=== PATIENT | female | born 1945 | race Two or more races ===

== ENCOUNTER 2016-04-12 09:26 | Emergency (ER) | payer MEDICARE, OTHER ==
[~2016-04-12] VITALS: Ht 157.5 cm; Wt 70.3 kg
[2016-04-12 10:28] VITALS: BP 138/74
--- NOTE | 2016-04-12 10:43 | PHYS DOC ---
Past Medical History Past Medical History: No Pertinent History Past Surgical History: Cholecystectomy, Hysterectomy, Tonsillectomy Alcohol Use: None Drug Use: None Adult General Chief Complaint Chief Complaint: HAND PROBLEM HPI HPI Patient is a 71 year old female presents emergency department stating that she fell on the ice on Tuesday. She states that she fell on an outstretched hand. She states that she has been having pain in the wrist area with swelling. She's been placing cream over the area as well as ice packs and elevation. She's been taking extra strength Tylenol for the pain and discomfort which she states is helped. Patient continues to deny any numbness or tingling into the fingers. Patient did have a ring on her finger in which she had it removed after x-rays were taken. Review of Systems Review of Systems Constitutional: Denies fever or chills [] Eyes: Denies change in visual acuity, redness, or eye pain [] HENT: Denies nasal congestion or sore throat [] Respiratory: Denies cough or shortness of breath [] Cardiovascular: No additional information not addressed in HPI [] Musculoskeletal: Denies back pain. C/o right wrist pain and discomfort Integument: Denies rash or skin lesions [] Neurologic: Denies headache, focal weakness or sensory changes [] Allergies Allergies Allergies Coded Allergies Type Severity Reaction Last Updated Verified No Known Drug Allergies 04/12/16 No Physical Exam Physical Exam Constitutional: Well developed, well nourished, no acute distress, non-toxic appearance. [] HENT: Normocephalic, atraumatic, bilateral external ears normal, oropharynx moist, no oral exudates, nose normal. [] Eyes: PERRLA, EOMI, conjunctiva normal, no discharge. [] Neck: Normal range of motion, no tenderness, supple, no stridor. [] Cardiovascular:Heart rate regular rhythm Lungs & Thorax: no respiratory distress Skin: Warm, dry, no erythema, no rash. [] Back: No tenderness Extremities: Right wrist tenderness, no cyanosis, no clubbing, ROM intact, no edema. Peripheral pulses 2+ cap refill brisk less than 2 seconds. Patient with good sensation to the fingers is able to move the fingers and the wrist without difficulty. Does have tenderness noted over the scaphoid area. Neurologic: Alert and oriented X 3, normal motor function, normal sensory function, no focal deficits noted. [] Psychologic: Affect normal, judgement normal, mood normal. [] Current Patient Data Vital Signs Vital Signs Date Time Temp Pulse Resp B/P Pulse Ox O2 Delivery O2 Flow Rate FiO2 04/12/16 10:28 98.4 77 18 95 Room Air 98.4 EKG EKG [] Radiology/Procedures Radiology/Procedures [][facility] [address] [place] [address] IMAGING REPORT Signed PATIENT: ALEXA KIRKLAND ACCOUNT: [id number] : 1945 LOCATION: ER AGE: 71 SEX: F EXAM STATUS: REG ER ORD. PHYSICIAN: GAVINO BEARD NP REASON: hand pain and discomfort PROCEDURE: HAND RIGHT 3V Right hand, 3 views, 04/12/2016: History: Hand pain after a fall There is patchy bony demineralization. A small calcific density along the dorsal aspect of the first row of carpal bones most likely represents a cortical fracture arising from the triquetrum. Clinical correlation with the site of the patient's current pain is suggested. No other recent fracture or dislocation is identified. There are mild degenerative changes at scattered interphalangeal joints. IMPRESSION: Probable small cortical fracture along the dorsal margin of the triquetrum. DICTATED and SIGNED BY: ANURADHA CHRISTINA MD DATE: 04/12/16 1037 CC: GAVINO BEARD RIPSAWYER; SIRENA GOLDBERG MD ~ Course & Med Decision Making Course & Med Decision Making Pertinent Labs and Imaging studies reviewed. (See chart for details) X-ray states that they see a questionable fracture. Patient was placed in a volar splint with recommendations for ice packs on 20 minutes off 20 minutes several times a day elevation as much as possible. Patient was also recommended continue with the Tylenol for pain and discomfort. She'll be provided with orthopedic name and number to follow up with. Patient agrees with discharge instructions treatment regimens and follow-up recommendations. Signs and symptoms to return back to emergency department as been provided. [] Dragon Disclaimer Dragon Disclaimer This electronic medical record was generated, in whole or in part, using a voice recognition dictation system. Departure Departure Impression: Primary Impression: Wrist fracture, right Disposition: 01 HOME, SELF-CARE Condition: STABLE Referrals: SIRENA GOLDBERG MD (PCP) ALKA WOLF MD Patient Instructions: Wrist Fracture Additional Instructions: Tylenol for pain and discomfort. Ice packs on 20 minutes off 20 minutes several times a day. Elevation as much as possible. Follow-up with orthopedic within the week. Keep the splint clean and dry. Do not remove the splint until you follow-up with orthopedic. Return back to emergency prior signs symptoms become worse. Splinting Splinting : Location: right wrist Hand-Made Type: orthoglass Splint: volar Pre-Proc Neuro Vasc Exam: normal Post-Proc Neuro Vasc Exam: normal GAVINO BEARD NP Apr 12, 2016 10:43
== END 2016-04-12 10:56 | disposition home or self-care (01) ==
LOC: ER 09:26
DX: S62.101A Fracture of unspecified carpal bone, right wrist, initial encounter for closed fracture (principal); W19.XXXA Unspecified fall, initial encounter; Y93.89 Activity, other specified; Y92.89 Other specified places as the place of occurrence of the external cause; Y99.8 Other external cause status
CPT/HCPCS: 29125; 73130; 99284-25